=== PATIENT | female | born 1945 | race Caucasian/White ===

== ENCOUNTER 2021-03-28 14:24 | Outpatient (AMB) | payer MEDICARE, SELFPAY ==
[2021-03-28 14:54] VITALS: BP 145/76; PULSE 66; RESP 19; TEMP 36.8; BMI 23.4
--- NOTE | 2021-03-28 14:54 | URONOTE_ITS ---
Intake Vital Signs 03/28/21 14:54 Height 1.57 m Height Method Stated Weight 58.173 kg Weight Measurement Method Standing Scale BMI 23.4 Temp 98.3 F Temp Source Temporal Artery Scan Pulse 66 Pulse Source Monitor Respiration 19 BP 145/76 H Blood Pressure Source Automatic Cuff Blood Pressure Location Left Upper Arm Position Sitting Intake Visit Reasons: Uro Cystocopy in office Allergy Allergies tramadol Allergy (Verified 03/28/21 15:57) Nausea, vomiting Home Meds Medication Reconciliation aspirin 81 mg chewable tablet 81 mg PO QDAY 06/29/18 [History Confirmed 03/28/21] atorvastatin 20 mg tablet (Lipitor) 20 mg PO QPM 06/29/18 [History Confirmed 03/28/21] biotin 5,000 mcg sublingual tablet 5,000 mcg QDAY 06/29/18 [History Confirmed 03/28/21] gabapentin 600 mg tablet 600 mg PO BID 06/29/18 [History Confirmed 03/28/21] losartan 50 mg tablet 50 mg PO QDAY 06/29/18 [History Confirmed 03/28/21] metoprolol tartrate 50 mg tablet (Lopressor) 25 mg PO BID 06/29/18 [History Confirmed 03/28/21] mirabegron 50 mg tablet,extended release 24 hr (Myrbetriq) 50 mg PO QDAY 06/29/18 [History Confirmed 03/28/21] montelukast 10 mg tablet (Singulair) 10 mg PO QPM 06/29/18 [History Confirmed 03/28/21] omeprazole 20 mg capsule,delayed release 20 mg PO QDAY 06/29/18 [History Confirmed 03/28/21] hydrocodone 7.5 mg-acetaminophen 325 mg tablet 1 tab PO .PRN PRN tab 07/25/20 [History Confirmed 03/28/21] estradiol (Estrace) 2 g VAGINAL DIRECTED g 10/11/20 [History Confirmed 03/28/21] nitrofurantoin monohydrate/macrocrystals 100 mg capsule (Macrobid) 100 mg PO QDAY cap 10/11/20 [History Confirmed 03/28/21] Nurse Note: DANA Woodward- Patient be rescheduled for cystoscopy. Patient had UTI today. Patient given prescription for Macrobid for 5 days BID. Patient also educated on UTI prevention and instructed on vagifem cream use. Current Vital Signs Height Height Method Weight Weight Measurement Method Body Mass Index Temperature Temperature Source 1.57 m Stated 58.173 kg Standing Scale 23.4 98.3 F Temporal Artery Scan 03/28/21 14:54 03/28/21 14:54 03/28/21 14:54 03/28/21 14:54 03/28/21 14:54 03/28/21 14:54 03/28/21 14:54 Pulse Rate Pulse Source Respiratory Rate Blood Pressure Blood Pressure Source Blood Pressure Location Blood Pressure Position 66 Monitor 19 145/76 H Automatic Cuff Left Upper Arm Sitting 03/28/21 14:54 03/28/21 14:54 03/28/21 14:54 03/28/21 14:54 03/28/21 14:54 03/28/21 14:54 03/28/21 14:54 Nursing Documentation Social History Living Situation History Housing: House Tobacco History Smoking Status: Never smoker Alcohol History Alcohol Intake: Never Office Procedures Uro DC Catheter DC Catheter Date Urinary Catheter Removed: 03/28/21 Time Urinary Catheter Removed: 15:45 Urinary Catheter Intact After Removal: Yes Uro Clinic Insert Urinary Cath My Supervising Practitioner for this visit:: Jeremy Kerns Cath Insertion Straight: Yes Uro Level of Care Nursing/Assessment/Reassessment Patient Status: Established Patient Nursing Assessment/Reassessment: Update [facility] data in EMR, Vital Signs and Medication Reconciliation Coordination of Care: Comp Pt/Fam Ed for care Established Patient Point Assignment: 50 Established Patient Point Charge: EP Level 2 (40-75) Procedure IM Injection: No Transrectal Ultrasound: No Urology Clinic Office Visit Office Visit Date of visit:: March 28, 2021 14:24 Allergies & Home Medications: Allergies tramadol Allergy (Verified 10/11/20 13:33) Nausea, vomiting Visit: Reason for visit: [] Office Visit findings: []
--- NOTE | 2021-03-31 06:26 | URONOTEN_ITS ---
RE: ELIAS GAVIRIA : 1945 DATE: 03/28/2021 CHIEF COMPLAINT: 1. Recurrent urinary tract infection. 2. Mixed urinary incontinence. 3. Failed bladder suspension operation. COMORBID CONDITIONS: 1. Hypertension. 2. Coronary artery disease, status post placement of cardiac stents. HISTORY OF PRESENT ILLNESS: This is a 75-year-old female. She is 2, para 2. She had a history of recurrent UTI. She has been on various antibiotics for the same. CAT scan of the abdomen and pelvis was done. This was reviewed by me. This revealed renal parenchymal scar formation and degenerative changes of the lumbar spine. No hydronephrosis, no renal calculi, no solid mass identified. The patient was scheduled for cystoscopic examination today, but her urine is infected. I canceled the cystoscopic examination. I did in and out catheter, obtained the urine for culture and sensitivity and it has been sent to the lab. She has no history of gross hematuria. She does have dysuria. She has frequency of urination 3 to 7 times at night, 7 times during the day. Past medical history, family history, review of systems, personal history, please refer to the patient history form dated 03/28/2021. It is in HPI, in EMR. PHYSICAL EXAMINATION: General: Condition is satisfactory. Orientation x3. HEENT: Normocephalic, atraumatic. Eyes: No anemia or jaundice. Neck: Supple. Trachea is central. Thyroid is not enlarged. Extremities: Revealed no edema, cyanosis or clubbing. Vital Signs: Stable. They are in the HPI, in EMR. VARIOUS LABS: BUN is 20, creatinine is 1.2, GFR is 46. RECOMMENDATIONS: 1. Start her on Macrobid 100 mg p.o. b.i.d. for 5 days, stop if develops chronic cough. 2. Send urine for culture and sensitivity. 3. I am putting her on Vagifem 10 mcg twice a week per vagina. 4. Reschedule her for cystoscopic examination. All above issues were discussed with the patient in great detail. Questions were answered to her satisfaction. She verbalized understanding. I have put her on Dr. Dove's schedule as well. DT: 16:16:19 TT: 17:06:00 Ref: [id number] - TID: [id number]
[2021-04-02 10:10] LABS: Bilirubin,Urine Clinitek Negative (Negative); Blood,Urine Clinitek 1+ (Negative); Glucose, Urine Clinitek Negative (Negative); Ketones,Urine Clinitek Negative (Negative); Leukocyte Esterase,Urine Clin 3+ (Negative); Nitrite,Urine Clinitek Negative (Negative); Protein,Urine Clinitek 1+ (Neg - Trace); Urobilinogen,Urine Clinitek 0.2 mg/dL (0.0-1.0)
== END 2021-03-28 15:51 | disposition home or self-care (01) ==
LOC: HODURO 14:24
PROVIDERS: PCP Family Medicine; Referring Provider Family Medicine; Visit Provider Urology